=== PATIENT | male | born 1945 | race Caucasian/White ===

== ENCOUNTER 2022-02-24 21:19 | Inpatient (IN) | payer OTHER ==
[~2022-02-24] VITALS: Ht 180.3 cm; Wt 86.7 kg
[2022-02-24 21:58] LABS: BASOPHIL 0.4 % (0-2); EOSINOPHIL 2.3 % (0-7); HCT 37.9 % (42.0-52.0); HGB 12.2 g/dl (13.2-18.0); LYMPHOCYTE 12.9 % (15-48); MCH 30.3 pg (25.0-31.0); MCHC 32.2 g/dL (32.0-36.0); MPV 11.1 fL (6.0-9.5); NRBC 0; PLT 173 K/uL (150-400); RBC 4.03 M/uL (4.70-6.00); RDW 13.8 % (11.5-14.0); WBC 9.2 K/uL (4.0-10.5)
[2022-02-24 22:08] LABS: INR 1.1 (0.9-1.2); PROTHROMBIN TIME 13.9 SECONDS (11.9-13.9); PTT 32.5 SECONDS (24.9-34.6)
[2022-02-24 22:20] LABS: CREATININE 1.19 mg/dL (0.67-1.17); TOTAL PROTEIN 7.7 g/dL (6.4-8.2)
[2022-02-24 22:21] LABS: ALBUMIN 3.5 g/dL (3.4-5.0); BILIRUBIN - TOTAL 0.4 mg/dL (0.2-1.0); GLOBULIN (CALCULATION) 4.2 g/dL
[2022-02-24 23:34] LABS: INFLUENZA A NAA NEGATIVE (NEGATIVE)
[2022-02-24 23:35] LABS: CORONAVIRUS 2019 SARS-COV-2 POSITIVE (NEGATIVE)
[2022-02-25 01:32] LABS: BILIRUBIN NEGATIVE (NEGATIVE); BLOOD NEGATIVE Ery/uL (NEGATIVE); CLARITY CLEAR (CLEAR); COLOR YELLOW (YELLOW); GLUCOSE (U) NORMAL (NORMAL); LEUKOCYTES NEGATIVE Leu/uL (NEGATIVE); NITRITE NEGATIVE (NEGATIVE); PROTEIN TRACE (LOW) mg/dL (NEGATIVE); SPECIFIC GRAVITY >=1.030 (1.001-1.030); UROBILINOGEN 0.2 mg/dL (0.2-1.0); pH 5.5 (5.0-9.0)
[2022-02-25 01:46] LABS: AMPHETAMINES NEGATIVE (NEGATIVE); BARBITURATES NEGATIVE (NEGATIVE); ECSTASY (MDMA) NEGATIVE (NEGATIVE); MARIJUANA (THC) NEGATIVE (NEGATIVE); METHADONE NEGATIVE (NEGATIVE); OPIATES NEGATIVE (NEGATIVE); OXYCODONE NEGATIVE (NEGATIVE)
[2022-02-25 02:02] LABS: URINARY RBC RARE; URINARY WBC RARE
[2022-02-25 02:03] LABS: SQUAMOUS EPITHELIAL CELLS RARE
[2022-02-25] MEDS ORDERED: MEMANTINE HCL5 MG PO (04:43)
[2022-02-25] MEDS ORDERED: ARMOUR THYROID90 MG PO (04:43)
[2022-02-25] MEDS ORDERED: ISOSORBIDE DINI20 M1 PO (04:44)
[2022-02-25] MEDS ORDERED: ARMOUR THYROID180 MG PO (04:44)
[2022-02-25] MEDS ORDERED: FLOMAX0.4 MG PO (04:45)
[2022-02-25] MEDS ORDERED: COREG25 MG PO (04:45)
[2022-02-25] MEDS ORDERED: TERAZOSIN HCL5 MG PO (04:46)
[2022-02-25] MEDS ORDERED: ZOLOFT50 MG PO (04:46)
[2022-02-25 06:05] LABS: HCT 34.9 % (42.0-52.0); HGB 11.4 g/dl (13.2-18.0); MCH 30.6 pg (25.0-31.0); MCHC 32.7 g/dL (32.0-36.0); MCV 93.6 fL (78.0-100.0); MPV 11.3 fL (6.0-9.5); RBC 3.73 M/uL (4.70-6.00); RDW 13.6 % (11.5-14.0); WBC 8.4 K/uL (4.0-10.5)
[2022-02-25 07:07] LABS: BUN/CREAT RATIO (CALC) 20.4 RATIO; CREATININE 1.42 mg/dL (0.67-1.17); FT4 (FREE T4) 0.8 ng/dL (0.76-1.46); POTASSIUM 4.1 mmol/L (3.5-5.1)
[2022-02-25] MEDS ORDERED: APRESOLINE100 MG PO (10:20)
[2022-02-26 06:46] LABS: BASOPHIL 0.5 % (0-2); EOSINOPHIL 2.5 % (0-7); HCT 33.4 % (42.0-52.0); HGB 10.7 g/dl (13.2-18.0); LYMPHOCYTE 19.6 % (15-48); MCH 30.4 pg (25.0-31.0); MCV 94.9 fL (78.0-100.0); MONOCYTE 8.3 % (0-12); MPV 11.4 fL (6.0-9.5); NEUTROPHIL 68.6 % (41-80); NRBC 0; PLT 159 K/uL (150-400); RBC 3.52 M/uL (4.70-6.00); WBC 8.8 K/uL (4.0-10.5)
[2022-02-26 07:05] LABS: BUN/CREAT RATIO (CALC) 14.8 RATIO; CREATININE 2.03 mg/dL (0.67-1.17); MAGNESIUM 1.8 mg/dL (1.8-2.4); POTASSIUM 3.7 mmol/L (3.5-5.1)
[2022-02-27 06:43] LABS: BASOPHIL 0.2 % (0-2); EOSINOPHIL 2.3 % (0-7); HCT 34.5 % (42.0-52.0); HGB 10.9 g/dl (13.2-18.0); LYMPHOCYTE 21.3 % (15-48); MCH 30.1 pg (25.0-31.0); MCHC 31.6 g/dL (32.0-36.0); MCV 95.3 fL (78.0-100.0); MONOCYTE 7.4 % (0-12); MPV 11.6 fL (6.0-9.5); NEUTROPHIL 68.6 % (41-80); NRBC 0; PLT 165 K/uL (150-400); RBC 3.62 M/uL (4.70-6.00); RDW 13.9 % (11.5-14.0); WBC 8.4 K/uL (4.0-10.5)
[2022-02-27 07:11] LABS: BUN/CREAT RATIO (CALC) 14.6 RATIO; CREATININE 2.19 mg/dL (0.67-1.17); MAGNESIUM 1.8 mg/dL (1.8-2.4); POTASSIUM 3.7 mmol/L (3.5-5.1)
[2022-02-28 06:07] LABS: BASOPHIL 0.9 % (0-2); EOSINOPHIL 4.4 % (0-7); HCT 30.9 % (42.0-52.0); HGB 9.8 g/dl (13.2-18.0); LYMPHOCYTE 32.3 % (15-48); MCH 30.2 pg (25.0-31.0); MCHC 31.7 g/dL (32.0-36.0); MCV 95.4 fL (78.0-100.0); MONOCYTE 7.9 % (0-12); MPV 11.3 fL (6.0-9.5); NEUTROPHIL 54.3 % (41-80); NRBC 0; PLT 150 K/uL (150-400); RBC 3.24 M/uL (4.70-6.00); RDW 13.9 % (11.5-14.0); WBC 5.7 K/uL (4.0-10.5)
[2022-02-28 06:31] LABS: BUN/CREAT RATIO (CALC) 16.3 RATIO; CREATININE 1.78 mg/dL (0.67-1.17); POTASSIUM 3.6 mmol/L (3.5-5.1)
[2022-03-01 05:31] LABS: BASOPHIL 0.6 % (0-2); EOSINOPHIL 3.4 % (0-7); HCT 31.5 % (42.0-52.0); HGB 10.2 g/dl (13.2-18.0); LYMPHOCYTE 28.6 % (15-48); MCH 30.7 pg (25.0-31.0); MCHC 32.4 g/dL (32.0-36.0); MCV 94.9 fL (78.0-100.0); MONOCYTE 6.7 % (0-12); MPV 10.9 fL (6.0-9.5); NEUTROPHIL 60.4 % (41-80); NRBC 0; PLT 155 K/uL (150-400); RBC 3.32 M/uL (4.70-6.00); RDW 13.8 % (11.5-14.0); WBC 6.8 K/uL (4.0-10.5)
[2022-03-01 05:54] LABS: BUN/CREAT RATIO (CALC) 17.3 RATIO; CREATININE 1.5 mg/dL (0.67-1.17); POTASSIUM 3.5 mmol/L (3.5-5.1)
[2022-03-02 06:48] LABS: BUN/CREAT RATIO (CALC) 15.6 RATIO; CREATININE 1.41 mg/dL (0.67-1.17); POTASSIUM 3.5 mmol/L (3.5-5.1)
[2022-03-03 07:38] LABS: CREATININE 1.33 mg/dL (0.67-1.17); MAGNESIUM 1.4 mg/dL (1.8-2.4); POTASSIUM 3.4 mmol/L (3.5-5.1)
[2022-03-03] MEDS ORDERED: APRESOLINE100 MG PO (15:10)
[2022-03-03] MEDS ORDERED: CARVEDILOL12.5 MG PO (15:10)
[2022-03-03] MEDS ORDERED: ISOSORBIDE DINI20 M1 PO (15:10)
[2022-03-03] MEDS ORDERED: NORVASC5 MG PO (15:10)
[2022-03-03] MEDS ORDERED: TERAZOSIN HCL5 MG PO (15:10)
[2022-03-03] MEDS ORDERED: VALSARTAN160 MG PO (15:27)
== END 2022-03-03 16:55 | DRG 304 ==
LOC: FER 21:19 → FTCU 02-25 01:04
PROVIDERS: Internal Medicine; Nurse Practitioner Acute Care; ADMIT Internal Medicine
PROC: B24BZZZ Ultrasonography of Heart with Aorta (ICD-10-PCS; principal; 2022-02-25)
PROC: 8E0ZXY6 Isolation (ICD-10-PCS; 2022-02-25)
DX: I16.1 Hypertensive emergency (principal); U07.1 COVID-19; G91.2 (Idiopathic) normal pressure hydrocephalus; I50.32 Chronic diastolic (congestive) heart failure; N17.9 Acute kidney failure, unspecified; N13.2 Hydronephrosis with renal and ureteral calculous obstruction; I13.0 Hypertensive heart and chronic kidney disease with heart failure and stage 1 through stage 4 chronic kidney disease, or unspecified chronic kidney disease; N18.9 Chronic kidney disease, unspecified; R13.10 Dysphagia, unspecified; I49.1 Atrial premature depolarization; F03.90 Unspecified dementia, unspecified severity, without behavioral disturbance, psychotic disturbance, mood disturbance, and anxiety; E87.6 Hypokalemia; K57.30 Diverticulosis of large intestine without perforation or abscess without bleeding; I48.0 Paroxysmal atrial fibrillation; Z96.641 Presence of right artificial hip joint; Z83.6 Family history of other diseases of the respiratory system; Z82.49 Family history of ischemic heart disease and other diseases of the circulatory system; Z88.0 Allergy status to penicillin; Z88.8 Allergy status to other drugs, medicaments and biological substances; Z87.891 Personal history of nicotine dependence; Z79.899 Other long term (current) drug therapy
CPT/HCPCS: 36415; 70450; 71250; 80048; 80053; 80305; 81001; 83605; 83690; 83735; 83880; 84439; 84443; 84484; 85025; 85610; 85730; 93005; 97162; 97166; 97535; J0360; J1650; J1885; J1940; J2405; J7030; J7120; U0002